=== PATIENT | female | born 1995 ===

== ENCOUNTER 2024-11-05 11:07 | Outpatient (CLI) | payer OTHER | END 2024-11-05 11:10 | disposition home or self-care (01) | LOC: PRENATAL 11:07 | PROVIDERS: ATTEND Obstetrics & Gynecology Maternal & Fetal Medicine | DX: O36.80X0 Pregnancy with inconclusive fetal viability, not applicable or unspecified (principal); Z36.82 Encounter for antenatal screening for nuchal translucency; O28.3 Abnormal ultrasonic finding on antenatal screening of mother; Z14.8 Genetic carrier of other disease; Z3A.13 13 weeks gestation of pregnancy ==

== ENCOUNTER → 2024-12-21 12:29 | Outpatient (CLI) | payer OTHER | END | disposition home or self-care (01) | LOC: PRENATAL 12:29 | PROVIDERS: ATTEND Obstetrics & Gynecology Maternal & Fetal Medicine | DX: O44.00 Complete placenta previa NOS or without hemorrhage, unspecified trimester (principal); O34.10 Maternal care for benign tumor of corpus uteri, unspecified trimester; Z3A.20 20 weeks gestation of pregnancy ==

== ENCOUNTER 2025-02-16 10:22 | Outpatient (CLI) | payer OTHER | END 2025-02-16 10:23 | disposition home or self-care (01) | LOC: PRENATAL 10:22 | PROVIDERS: ATTEND Obstetrics & Gynecology Maternal & Fetal Medicine | DX: O26.849 Uterine size-date discrepancy, unspecified trimester (principal); O34.10 Maternal care for benign tumor of corpus uteri, unspecified trimester; Z3A.29 29 weeks gestation of pregnancy ==

== ENCOUNTER → 2025-03-29 | Outpatient (CLI) | payer OTHER | END | disposition home or self-care (01) | LOC: PRENATAL 10:46 | PROVIDERS: ATTEND Obstetrics & Gynecology Maternal & Fetal Medicine | DX: O26.849 Uterine size-date discrepancy, unspecified trimester (principal); O36.8130 Decreased fetal movements, third trimester, not applicable or unspecified; O34.10 Maternal care for benign tumor of corpus uteri, unspecified trimester; Z3A.35 35 weeks gestation of pregnancy ==